=== PATIENT | male | born 1945 | race Caucasian/White ===

== ENCOUNTER 2019-07-19 08:37 | Observation (INO) | payer MEDICARE ==
[2019-07-18 10:48] VITALS: BMI 33.1
--- NOTE | 2019-07-19 09:34 | RAD ---
XR Chest Pa Lat STANDARD History: Preop evaluation Comparison: None. Findings: Lungs are clear. No pneumothorax or effusion. Cardiac silhouette and mediastinal contours a re within normal limits. Impression: No acute intrathoracic abnormality.
[2019-07-19 09:52] LABS: #Eosinphils 0.1 thou/uL (0.0-0.7); #Monocytes 0.4 thou/uL (0.11-0.59); #Neutrophils 2.7 thou/uL (1.40-6.50); %Basophils 0.1 % (0.0-1.0); %Eosinophils 1.2 % (0.0-10.0); %Lymphocytes 24.3 % (21.0-51.0); %Monocytes 8.7 % (0.0-10.0); %Neutrophils 65.7 % (42.0-75.0); Hemoglobin 12.1 g/dL (14.0-18.0); Mean Corpuscular HGB CONC 34.2 g/dL (32.0-36.0); Mean Corpuscular Hemoglobin 31.9 pg (27.0-31.0); Mean Corpuscular Volume 93.3 fL (78.0-98.0); Mean Platelet Volume 7.7 fL (7.4-10.4); Platelet Count 124 thou/uL (130-400); RBC Distribution Width 14.6 % (11.5-14.5); Red Blood Cell (RBC) Count 3.79 mill/uL (4.70-6.10); White Blood Cell (WBC) Count 4.2 thou/uL (4.8-10.8)
[2019-07-19] MEDS ORDERED: Ketorolac Tromethamine 30 MG/ML VIAL ONE (09:54)
[2019-07-19 10:11] LABS: Anion Gap 12 mmol/L (10-20); BUN (Urea Nitrogen) 26 mg/dL (8.4-25.7); Calc. Creatinine Clearance 56 mL/min (70-130); Calcium 9.4 mg/dL (7.8-10.44); Carbon Dioxide 20 mmol/L (23-31); Chloride 110 mmol/L (98-107); Estimated GFR-MDRD 43; Glucose 103 mg/dL (83-110); Potassium 4.5 mmol/L (3.5-5.1); Sodium 137 mmol/L (136-145)
[2019-07-19] MEDS ORDERED: Rocuronium Bromide 10 MG/ML (10ML VIAL) ONE (12:15)
[2019-07-19] MEDS ORDERED: PROPOFOL 200 MG/20 ML VIAL ONE (12:15)
[2019-07-19] MEDS ORDERED: PHENYLEPHRINE-NS 100 MCG/ML 10 ML SYRINGE ONE (12:15)
[2019-07-19] MEDS ORDERED: Ondansetron PF 4 MG/2 ML Vial ONE (12:15)
[2019-07-19] MEDS ORDERED: ePHEDrine 50 MG/ML VIAL ONE (12:15)
[2019-07-19] MEDS ORDERED: Lidocaine 1% PF 5 ML VIAL ONE (12:15)
[2019-07-19] MEDS ORDERED: Midazolam HCl 2 mg/2 ml Vial ONE (13:17)
[2019-07-19] MEDS ORDERED: Fentanyl 100 MCG/2 ML VIAL ONE (13:17)
[2019-07-19] MEDS ORDERED: Bupivacaine/Epinephrine 0.25% 30 ML VIAL ONE (14:56)
[2019-07-19] MEDS ORDERED: SUGAMMADEX SODIUM 500 MG/5 ML VIAL ONE (15:37)
[2019-07-19] MEDS ORDERED: Ondansetron HCl/PF 4 MG/2 ML Vial IVP PRN (16:15)
[2019-07-19] MEDS ORDERED: Promethazine HCl 25 MG/ML VIAL SLOW IVP PRN (16:15)
[2019-07-19] MEDS ORDERED: Promethazine HCl 25 MG/ML VIAL IM PRN (16:15)
[2019-07-19] MEDS ORDERED: Polyethylene Glycol 3350 17 GM Packet PO PRN (18:35)
[2019-07-19] MEDS ORDERED: Dextrose 5% in Water 1,000 ML IV PRN (18:35)
[2019-07-19] MEDS ORDERED: Insulin Regular 300 UNITS/3 ML VIAL SC PRN (18:35)
[2019-07-19] MEDS ORDERED: Morphine 2 MG/ML SYRINGE SLOW IVP PRN (18:35)
[2019-07-19] MEDS ORDERED: Dextrose 50% Abboject 50 ML SYRINGE SLOW IVP PRN (18:35)
[2019-07-19] MEDS ORDERED: Ondansetron PF 4 MG/2 ML Vial IVP PRN (18:35)
[2019-07-19] MEDS ORDERED: Morphine 4 MG/ML VIAL SLOW IVP PRN (18:35)
[2019-07-19] MEDS ORDERED: metFORMIN 850 MG TAB PO SCH (21:00)
[2019-07-19] MEDS ORDERED: Non-Formulary Item 1 EACH (Pioglitazone Hcl/Metformin Hcl [Actoplus Met] 1 TABLET) PO SCH (21:00)
[2019-07-19] MEDS ORDERED: Meloxicam 7.5 MG TAB PO SCH (21:00)
[2019-07-19] MEDS ORDERED: Atorvastatin Calcium 20 MG TAB PO SCH (21:00)
[2019-07-19] MEDS ORDERED: Pioglitazone HCl 15 MG TAB PO SCH (21:00)
[2019-07-19] MEDS ORDERED: Tamsulosin HCl 0.4 MG CAP PO SCH (21:00)
[2019-07-19] MEDS ORDERED: Lisinopril 10 MG TAB PO SCH (21:00)
[2019-07-19] MEDS: Famotidine/PF 20 mg/2ml Vial SLOW IVP SCH (21:17)
[2019-07-19] MEDS: Lactated Ringer's 1,000 ML IV SCH (21:17)
[2019-07-19] MEDS: traMADol HCl 50 MG TAB PO PRN (21:18)
[2019-07-20] MEDS: traMADol HCl 50 MG TAB PO PRN ×2 (05:30→13:09)
[2019-07-20 05:49] LABS: #Eosinphils 0.1 thou/uL (0.0-0.7); #Lymphocytes 0.9 thou/uL (1.20-3.40); #Monocytes 0.6 thou/uL (0.11-0.59); %Lymphocytes 15.8 % (21.0-51.0); %Monocytes 10.3 % (0.0-10.0); Hemoglobin 9.7 g/dL (14.0-18.0); Mean Corpuscular HGB CONC 33.7 g/dL (32.0-36.0); Mean Corpuscular Hemoglobin 31.8 pg (27.0-31.0); Mean Corpuscular Volume 94.2 fL (78.0-98.0); Mean Platelet Volume 7.5 fL (7.4-10.4); Platelet Count 92 thou/uL (130-400); RBC Distribution Width 14.4 % (11.5-14.5); Red Blood Cell (RBC) Count 3.06 mill/uL (4.70-6.10); White Blood Cell (WBC) Count 5.6 thou/uL (4.8-10.8)
[2019-07-20] MEDS: Lactated Ringer's 1,000 ML IV SCH (05:53)
[2019-07-20] MEDS ORDERED: Levothyroxine Sodium 100 MCG TAB PO SCH (06:00)
[2019-07-20 06:02] LABS: Anion Gap 11 mmol/L (10-20); BUN (Urea Nitrogen) 31 mg/dL (8.4-25.7); Calc. Creatinine Clearance 48 mL/min (70-130); Calcium 8.3 mg/dL (7.8-10.44); Carbon Dioxide 20 mmol/L (23-31); Chloride 110 mmol/L (98-107); Estimated GFR-MDRD 36; Glucose 94 mg/dL (83-110); Potassium 4.4 mmol/L (3.5-5.1); Sodium 137 mmol/L (136-145)
[2019-07-20] MEDS ORDERED: Lactated Ringer's 1,000 ML IV SCH ×2 (08:30→15:30)
[2019-07-20] MEDS: Famotidine/PF 20 mg/2ml Vial SLOW IVP SCH (09:47)
[2019-07-20 14:34] LABS: #Eosinphils 0.1 thou/uL (0.0-0.7); #Lymphocytes 1.1 thou/uL (1.20-3.40); #Monocytes 0.7 thou/uL (0.11-0.59); #Neutrophils 5.5 thou/uL (1.40-6.50); %Basophils 0.3 % (0.0-1.0); %Lymphocytes 14.6 % (21.0-51.0); %Monocytes 9.7 % (0.0-10.0); %Neutrophils 74.4 % (42.0-75.0); Hemoglobin 10.9 g/dL (14.0-18.0); Mean Corpuscular HGB CONC 33.7 g/dL (32.0-36.0); Mean Corpuscular Hemoglobin 31.8 pg (27.0-31.0); Mean Corpuscular Volume 94.3 fL (78.0-98.0); Mean Platelet Volume 7.8 fL (7.4-10.4); Platelet Count 124 thou/uL (130-400); RBC Distribution Width 14.7 % (11.5-14.5); Red Blood Cell (RBC) Count 3.43 mill/uL (4.70-6.10); White Blood Cell (WBC) Count 7.4 thou/uL (4.8-10.8)
[2019-07-20 14:50] LABS: Anion Gap 11 mmol/L (10-20); BUN (Urea Nitrogen) 30 mg/dL (8.4-25.7); Calc. Creatinine Clearance 45 mL/min (70-130); Calcium 8.6 mg/dL (7.8-10.44); Carbon Dioxide 21 mmol/L (23-31); Chloride 102 mmol/L (98-107); Estimated GFR-MDRD 33; Glucose 128 mg/dL (83-110); Potassium 4.2 mmol/L (3.5-5.1); Sodium 130 mmol/L (136-145)
[2019-07-20 16:17] VITALS: BP 129/68; TEMP 97.6
[2019-07-21] MEDS ORDERED: Polyethylene Glycol 3350 17 GM Packet PO SCH (09:00)
--- NOTE | 2019-07-23 06:31 | OP ---
DATE OF PROCEDURE: 07/19/2019 PREOPERATIVE DIAGNOSIS: Right inguinal hernia. POSTOPERATIVE DIAGNOSIS: Right inguinal hernia. OPERATION PERFORMED: Robotic right inguinal hernia repair. ANESTHESIA: General endotracheal. INDICATIONS: The patient is a 73-year-old white male. He has redundant skin and pannus secondary to recent weight loss. He has a large right inguinal hernia that he was unaware of because of the redundancy of the tissue in his lower abdomen and groin. He was taken to the operating room at this time for repair. DESCRIPTION OF OPERATION: Informed consent was obtained. The patient was taken to the operating room, where general endotracheal anesthesia was obtained with the patient in supine position. Abdomen was prepped with ChloraPrep and draped in sterile fashion. Local anesthetic was infiltrated using 0.25% Marcaine with epinephrine. An 11 mm supraumbilical incision was created, through which a Veress needle was passed into the peritoneal cavity and pneumoperitoneum was established using carbon dioxide up to pressure of 15 mmHg. An 11-mm balloon tipped port was placed uneventfully. Under direct vision, two additional 8-mm robotic ports were placed on either side of midline in the standard fashion. The robot was docked to the ports and the camera, and the operation was continued from the robotic console. , it was apparent that the balloon had pulled through the fascia on the camera port and the camera port had to be exchanged for a long port. The operation was then continued. The patient's anatomy was such that the instruments placed at the standard height were far too close to the groin, apparently because the umbilicus and periumbilical tissue was too low on his abdomen relative to his groin. This contributed to the difficulty of the operation. A transverse peritoneal incision was created, and dissection was carried distally in the preperitoneal space. I was able to identify the pubic tubercle medially and the iliopubic tract laterally. The patient had a large indirect inguinal hernia. I meticulously dissected this off the surrounding cord structures. I was able to invert the large hernia sac. A wide preperitoneal dissection was carried out inferiorly. A large 3DMax mesh patch was obtained and placed in the preperitoneal space. It was secured in place with 3 interrupted sutures of 2-0 Vicryl. Before placing the mesh, because of the large size of the defect, I partially closed the defect with 2 interrupted sutures of 2-0 Vicryl. The sutures placed were to the pubic tubercle and to the anterior abdominal wall lateral to the epigastric vessels. The peritoneum was closed with a running suture of 3-0 Stratafix. During the course of the operation, air had leached from within the peritoneum up into the subcutaneous fat and the patient developed extensive distention of the abdominal wall secondary to inspissated carbon dioxide. Secondary to this, I decided not to remove the Guillen catheter and to admit him for observation overnight. The ports were removed under direct vision. The fascial defect at the 11-mm port site was closed with 0 Vicryl suture using a GraNee needle. There was no evidence of bleeding from any port site. Pneumoperitoneum was carefully evacuated. 0.25% Marcaine with epinephrine was infiltrated into each port site. Skin edges were approximated with 4-0 Monocryl subcuticular suture. Dermabond was placed externally. There were no complications. The patient tolerated the procedure well and was taken to Recovery in stable condition. Job ID: [id number]
== END 2019-07-20 16:13 | disposition home or self-care (01) ==
LOC: SDC 08:37 → SJJU 18:05
PROVIDERS: ADMIT Specialist; ATTEND Specialist
PROC: 0YU54JZ Supplement Right Inguinal Region with Synthetic Substitute, Percutaneous Endoscopic Approach (ICD-10-PCS; principal; 2019-07-19)
DX: K40.90 Unilateral inguinal hernia, without obstruction or gangrene, not specified as recurrent (principal); L98.7 Excessive and redundant skin and subcutaneous tissue; I10 Essential (primary) hypertension; E11.9 Type 2 diabetes mellitus without complications; E03.9 Hypothyroidism, unspecified; E78.00 Pure hypercholesterolemia, unspecified; K21.9 Gastro-esophageal reflux disease without esophagitis; Z79.82 Long term (current) use of aspirin; Z79.899 Other long term (current) drug therapy; Z88.5 Allergy status to narcotic agent
CPT/HCPCS: 49650; 71046; 80048 ×3; 82962 ×2; 85025 ×3; 93005; 96361 ×2; 96374; 96375; 96376; C1781; G0378 ×2; 36415; 36416; 93010; J0131; J0690; J1885; J2001; J2250; J2405; J2704; J3010; J3490; S0028

== ENCOUNTER 2021-03-27 13:22 | Outpatient (CLI) | payer MEDICARE ==
[2021-03-27 14:35] LABS: #Eosinphils 0.1 10x3/uL (0.0-0.5); #Monocytes 0.5 10x3/uL (0.0-1.1); #Neutrophils 3.2 10x3/uL (1.5-8.4); %Basophils 0.7 % (0.0-2.0); %Eosinophils 2.2 % (0.0-6.0); %Lymphocytes 29.8 % (18.0-47.0); %Monocytes 9.5 % (0.0-10.0); %Neutrophils 57.6 % (40.0-75.0); Hemoglobin 12.5 g/dL (13.5-17.5); Mean Corpuscular HGB CONC 34.2 g/dL (32.0-36.0); Mean Corpuscular Hemoglobin 30.3 pg (27.0-33.0); Mean Corpuscular Volume 88.6 fl (81.2-95.1); Mean Platelet Volume 10.5 fl (7.4-10.4); Platelet Count 149 10x3/uL (150-450); RBC Distribution Width 17.2 % (11.5-14.5); Red Blood Cell (RBC) Count 4.13 10x6/uL (4.32-5.72); White Blood Cell (WBC) Count 5.5 10x3/uL (3.5-10.5)
[2021-03-27 14:47] LABS: Anion Gap 14 mmol/L (10-20); BUN (Urea Nitrogen) 37 mg/dL (8.4-25.7); Calc. Creatinine Clearance 0 mL/min (70-130); Calcium 9.1 mg/dL (7.8-10.44); Carbon Dioxide 22 mmol/L (23-31); Chloride 107 mmol/L (98-107); Glucose 112 mg/dL (83-110); Potassium 5.2 mmol/L (3.5-5.1); Sodium 138 mmol/L (136-145)
[2021-03-28 01:00] LABS: SARS-CoV-2 PCR by NAA Not Detected (NotDetected)
== END 2021-03-27 13:23 | disposition home or self-care (01) ==
LOC: LABBT 13:22
PROVIDERS: ATTEND Internal Medicine Cardiovascular Disease
DX: Z01.812 Encounter for preprocedural laboratory examination (principal); I48.19 Other persistent atrial fibrillation; Z20.822 Contact with and (suspected) exposure to COVID-19
CPT/HCPCS: 80048; 85025; U0003; U0005; 87635

== ENCOUNTER 2021-03-31 06:49 | Day surgery (SDC) | payer MEDICARE ==
[2021-03-27 12:20] VITALS: BMI 32.1
[2021-03-31] MEDS ORDERED: PROPOFOL 20 ML ONE (11:34)
[2021-03-31] MEDS ORDERED: Lidocaine 1% PF 5 ML VIAL ONE (11:34)
== END 2021-03-31 13:07 | disposition home or self-care (01) ==
LOC: CCL 06:49
PROVIDERS: ATTEND Internal Medicine Cardiovascular Disease
PROC: 5A2204Z Restoration of Cardiac Rhythm, Single (ICD-10-PCS; principal; 2021-03-31)
PROC: B246ZZ4 Ultrasonography of Right and Left Heart, Transesophageal (ICD-10-PCS; 2021-03-31)
DX: I48.19 Other persistent atrial fibrillation (principal); I08.1 Rheumatic disorders of both mitral and tricuspid valves; I10 Essential (primary) hypertension; I45.10 Unspecified right bundle-branch block; E78.00 Pure hypercholesterolemia, unspecified; K21.9 Gastro-esophageal reflux disease without esophagitis; E03.9 Hypothyroidism, unspecified; E11.9 Type 2 diabetes mellitus without complications; Z79.01 Long term (current) use of anticoagulants; Z79.82 Long term (current) use of aspirin; Z79.84 Long term (current) use of oral hypoglycemic drugs; Z79.899 Other long term (current) drug therapy; Z88.5 Allergy status to narcotic agent
CPT/HCPCS: 92960; 93005; 93010; 93312; J2704

== ENCOUNTER 2021-06-05 11:10 | Outpatient (CLI) | payer MEDICARE ==
[2021-06-05 13:05] LABS: Hemoglobin 11.9 g/dL (13.5-17.5); Mean Corpuscular HGB CONC 33.9 g/dL (32.0-36.0); Mean Corpuscular Hemoglobin 30.1 pg (27.0-33.0); Mean Corpuscular Volume 88.9 fl (81.2-95.1); Mean Platelet Volume 10.1 fl (7.4-10.4); Platelet Count 125 10x3/uL (150-450); RBC Distribution Width 17.7 % (11.5-14.5); Red Blood Cell (RBC) Count 3.95 10x6/uL (4.32-5.72); White Blood Cell (WBC) Count 4.4 10x3/uL (3.5-10.5)
[2021-06-05 13:17] LABS: INR-International Normal Ratio 1.1; PTT 27.9 sec (22.0-33.0); Prothrombin Time 12.6 sec (9.5-12.1)
[2021-06-05 13:39] LABS: Anion Gap 14 mmol/L (10-20); BUN (Urea Nitrogen) 36 mg/dL (8.4-25.7); Calc. Creatinine Clearance 0 mL/min (70-130); Calcium 9.5 mg/dL (7.8-10.44); Carbon Dioxide 22 mmol/L (23-31); Chloride 107 mmol/L (98-107); Glucose 111 mg/dL (83-110); Potassium 4.9 mmol/L (3.5-5.1); Sodium 138 mmol/L (136-145)
[2021-06-06 15:22] LABS: SARS-CoV-2 PCR by NAA Not Detected (NotDetected)
== END 2021-06-05 11:11 | disposition home or self-care (01) ==
LOC: LABBT 11:10
PROVIDERS: ATTEND Internal Medicine Cardiovascular Disease
DX: Z01.812 Encounter for preprocedural laboratory examination (principal); Z51.81 Encounter for therapeutic drug level monitoring; I48.91 Unspecified atrial fibrillation; I51.9 Heart disease, unspecified; Z79.01 Long term (current) use of anticoagulants; Z20.822 Contact with and (suspected) exposure to COVID-19
CPT/HCPCS: 80048; 85027; 85610; 85730; U0003; U0005

== ENCOUNTER 2021-06-10 05:57 | Day surgery (SDC) | payer MEDICARE ==
[2021-06-09 10:55] VITALS: BMI 32.0
[2021-06-10] MEDS ORDERED: Heparin 25,000 units/D5W 0 ML ONE (06:47)
[2021-06-10] MEDS ORDERED: Isoproterenol 0.2 MG/1 ML AMP ONE (06:47)
[2021-06-10] MEDS ORDERED: Heparin 10,000 UNITS/ 10 ML VIAL ONE ×2 (06:47→10:36)
[2021-06-10] MEDS ORDERED: Fentanyl 100 MCG/2 ML VIAL ONE ×3 (09:12→10:54)
[2021-06-10] MEDS ORDERED: Ondansetron PF 4 MG/2 ML Vial ONE (09:30)
[2021-06-10] MEDS ORDERED: PHENYLEPHRINE-NS 100 MCG/ML 10 ML SYRINGE ONE (09:30)
[2021-06-10] MEDS ORDERED: Rocuronium Bromide 10 MG/ML (10ML VIAL) ONE (09:30)
[2021-06-10] MEDS ORDERED: PROPOFOL 200 MG/20 ML VIAL ONE (09:30)
[2021-06-10] MEDS ORDERED: Lidocaine 1% PF 5 ML VIAL ONE (09:30)
[2021-06-10] MEDS ORDERED: Glycopyrrolate 0.2 MG/ML 5 ML SYRINGE ONE (09:30)
[2021-06-10] MEDS ORDERED: ePHEDrine 50 MG/ML VIAL ONE (09:30)
[2021-06-10] MEDS ORDERED: Protamine Sulfate 50 MG/5 ML VIAL ONE ×2 (11:55→12:21)
== END 2021-06-10 15:37 | disposition home or self-care (01) ==
LOC: CCL 05:57
PROVIDERS: ATTEND Internal Medicine Cardiovascular Disease
PROC: 02583ZZ Destruction of Conduction Mechanism, Percutaneous Approach (ICD-10-PCS; principal; 2021-06-10)
PROC: 02K83ZZ Map Conduction Mechanism, Percutaneous Approach (ICD-10-PCS; 2021-06-10)
PROC: 4A023FZ Measurement of Cardiac Rhythm, Percutaneous Approach (ICD-10-PCS; 2021-06-10)
PROC: 4A0234Z Measurement of Cardiac Electrical Activity, Percutaneous Approach (ICD-10-PCS; 2021-06-10)
DX: I48.19 Other persistent atrial fibrillation (principal); I48.4 Atypical atrial flutter; E78.5 Hyperlipidemia, unspecified; I10 Essential (primary) hypertension; E11.9 Type 2 diabetes mellitus without complications; E03.9 Hypothyroidism, unspecified; M17.12 Unilateral primary osteoarthritis, left knee; I49.5 Sick sinus syndrome; I45.10 Unspecified right bundle-branch block; I08.1 Rheumatic disorders of both mitral and tricuspid valves; E78.00 Pure hypercholesterolemia, unspecified; K21.9 Gastro-esophageal reflux disease without esophagitis; Z79.01 Long term (current) use of anticoagulants; Z79.84 Long term (current) use of oral hypoglycemic drugs; Z79.899 Other long term (current) drug therapy; Z88.5 Allergy status to narcotic agent
CPT/HCPCS: 76942; 85347; 93005; 93010; 93613; 93623; 93655; 93656; 93662; C1732; C1759; C1884; J1644; J2405; J2704; J2720; J3010; J3490

== ENCOUNTER 2022-04-16 15:28 | Inpatient (IN) | payer MEDICARE ==
[~2022-04-16 15:28] MED LIST: Heparin 1,000 UNITS/ML VIAL ONE
[2022-04-16] MEDS ORDERED: Ondansetron ODT 4 MG TAB PO PRN (15:58)
[2022-04-16] MEDS ORDERED: Ondansetron PF 4 MG/2 ML Vial IVP PRN (15:58)
[2022-04-16 18:03] VITALS: BMI 29.3
[2022-04-16] MEDS ORDERED: Vancomycin 1.5 GRAM/300 ML BAG 1.5 GM in Premix Bag 1 BAG IVPB SCH (18:15)
[2022-04-16 18:36] LABS: #Eosinphils 0.2 thou/uL (0.0-0.7); #Lymphocytes 1.6 thou/uL (1.20-3.40); #Monocytes 1.1 thou/uL (0.11-0.59); #Neutrophils 5.6 thou/uL (1.40-6.50); %Basophils 0.2 % (0.0-1.0); %Eosinophils 2.5 % (0.0-10.0); %Lymphocytes 18.5 % (21.0-51.0); %Monocytes 12.7 % (0.0-10.0); %Neutrophils 66.2 % (42.0-75.0); Hemoglobin 10.7 g/dL (14.0-18.0); Mean Corpuscular HGB CONC 31.7 g/dL (32.0-36.0); Mean Corpuscular Hemoglobin 28.9 pg (27.0-31.0); Mean Corpuscular Volume 91.1 fL (78.0-98.0); Mean Platelet Volume 7.5 fL (7.4-10.4); Platelet Count 243 thou/uL (130-400); RBC Distribution Width 17.4 % (11.5-14.5); Red Blood Cell (RBC) Count 3.72 mill/uL (4.70-6.10); White Blood Cell (WBC) Count 8.4 thou/uL (4.8-10.8)
[2022-04-16] MEDS ORDERED: Polyethylene Glycol 3350 17 GM Packet PO PRN (18:51)
[2022-04-16] MEDS ORDERED: Senokot 8.6 MG TAB PO PRN (18:51)
[2022-04-16 18:53] LABS: ALT (SGPT) 13 U/L (8-55); AST (SGOT) 34 U/L (5-34); Alkaline Phosphatase 115 U/L (40-110); Anion Gap 17 mmol/L (10-20); BUN (Urea Nitrogen) 30 mg/dL (8.4-25.7); Bilirubin, Total 2.2 mg/dL (0.2-1.2); Calc. Creatinine Clearance 36 mL/min (70-130); Calcium 8.8 mg/dL (7.8-10.44); Carbon Dioxide 23 mmol/L (23-31); Chloride 95 mmol/L (98-107); Globulin 4.9 g/dL (2.4-3.5); Glucose 136 mg/dL (83-110); Potassium 4.4 mmol/L (3.5-5.1); Protein, Total 7.9 g/dL (5.8-8.1); Sodium 131 mmol/L (136-145)
[2022-04-16] MEDS ORDERED: Dextrose 5% in Water 1,000 ML IV PRN (19:07)
[2022-04-16] MEDS ORDERED: HumaLOG 300 UNITS/3 ML VIAL SC PRN (19:07)
[2022-04-16] MEDS ORDERED: Dextrose 50% Abboject 50 ML SYRINGE SLOW IVP PRN (19:07)
[2022-04-16] MEDS ORDERED: Lactated Ringer's 1,000 ML IV SCH (19:45)
[2022-04-16] MEDS: Midodrine HCl 5 MG TAB PO SCH (20:48)
[2022-04-16] MEDS: Sodium Bicarbonate Tab 325 MG TAB PO SCH (20:48)
[2022-04-16] MEDS: Apixaban 2.5 MG TAB PO SCH (20:48)
[2022-04-16] MEDS: Amiodarone 200 MG TAB PO SCH (20:48)
[2022-04-17] MEDS: Levothyroxine Sodium 125 MCG TAB PO SCH (05:05)
[2022-04-17] MEDS: Floranex 1 GM Packet PO SCH (09:02)
[2022-04-17] MEDS: Sodium Bicarbonate Tab 325 MG TAB PO SCH ×2 (09:02→20:35)
[2022-04-17] MEDS: Amiodarone 200 MG TAB PO SCH ×2 (09:03→20:36)
[2022-04-17] MEDS: Apixaban 2.5 MG TAB PO SCH ×2 (09:03→20:39)
[2022-04-17] MEDS: Midodrine HCl 5 MG TAB PO SCH ×3 (09:03→20:35)
[2022-04-17 10:07] LABS: Anion Gap 14 mmol/L (10-20); BUN (Urea Nitrogen) 28 mg/dL (8.4-25.7); Calc. Creatinine Clearance 37 mL/min (70-130); Calcium 8.7 mg/dL (7.8-10.44); Carbon Dioxide 25 mmol/L (23-31); Chloride 97 mmol/L (98-107); Glucose 111 mg/dL (83-110); Potassium 4.6 mmol/L (3.5-5.1); Sodium 131 mmol/L (136-145)
[2022-04-17] MEDS: Lactated Ringer's 1,000 ML IV SCH ×2 (12:56→20:39)
[2022-04-17] MEDS ORDERED: VANCOMYCIN 1.25 GM/250 ML BAG 1.25 GM in Premix Bag 1 BAG IVPB SCH (18:00)
[2022-04-18] MEDS: Lactated Ringer's 1,000 ML IV SCH ×2 (03:10→10:43)
[2022-04-18] MEDS: Levothyroxine Sodium 125 MCG TAB PO SCH (05:12)
[2022-04-18 06:29] LABS: Hemoglobin 9.3 g/dL (14.0-18.0); Mean Corpuscular HGB CONC 32.3 g/dL (32.0-36.0); Mean Corpuscular Hemoglobin 29.6 pg (27.0-31.0); Mean Corpuscular Volume 91.6 fL (78.0-98.0); Mean Platelet Volume 7.2 fL (7.4-10.4); Platelet Count 147 thou/uL (130-400); RBC Distribution Width 17.6 % (11.5-14.5); Red Blood Cell (RBC) Count 3.13 mill/uL (4.70-6.10)
[2022-04-18 06:54] LABS: Anion Gap 11 mmol/L (10-20); BUN (Urea Nitrogen) 29 mg/dL (8.4-25.7); Calc. Creatinine Clearance 39 mL/min (70-130); Calcium 8.6 mg/dL (7.8-10.44); Carbon Dioxide 25 mmol/L (23-31); Chloride 97 mmol/L (98-107); Glucose 88 mg/dL (83-110); Potassium 4.3 mmol/L (3.5-5.1); Sodium 129 mmol/L (136-145)
[2022-04-18 06:59] LABS: Eosinophils 3 % (0-10); Lymphocytes 15 % (21-51); MDiff Complete? YES; Monocytes 16 % (0-10); Neutrophil 64 % (42-75)
[2022-04-18] MEDS: Sodium Bicarbonate Tab 325 MG TAB PO SCH ×2 (08:35→20:48)
[2022-04-18] MEDS: Midodrine HCl 5 MG TAB PO SCH ×3 (08:35→20:48)
[2022-04-18] MEDS: Apixaban 2.5 MG TAB PO SCH ×2 (08:35→21:26)
[2022-04-18] MEDS: Amiodarone 200 MG TAB PO SCH ×2 (08:36→20:48)
[2022-04-18] MEDS: Floranex 1 GM Packet PO SCH (08:36)
[2022-04-18] MEDS ORDERED: Sodium Chloride 0.9% 1,000 ML IV SCH (10:30)
[2022-04-18 12:21] LABS: Bacteria/HPF None Seen HPF (None Seen); Bilirubin Negative (Negative); Blood, Urine 3+ (Negative); Clarity Turbid (Clear); Glucose, Urine (Dipstick) Normal (Negative); Ketone, Urine Negative (Negative); Leukocyte 25 Leu/uL (Negative); Nitrite Negative (Negative); Protein, Urine (Dipstick) 50 mg/dL (Neg-Trace); RBC/HPF Greater than 50 HPF (0-3); Specific Gravity, Urine 1.012 (1.002-1.036); Squamous Epithelial 0-3 HPF (0-3); Urobilinogen 3 mg/dL (Less than 2)
[2022-04-18 12:22] LABS: Urine Culture Reflex Yes Yes
[2022-04-18 12:38] LABS: Protein, Urine Random Quant 69 mg/dL (1-14); Sodium, Urine 63 mmol/L (Not Available); Urea Nitrogen, Random Urine 463 mg/dl
[2022-04-18 17:17] LABS: Vancomycin, Trough 18.5 ug/mL
[2022-04-18] MEDS ORDERED: Vancomycin 1 GM in Premix Bag 1 BAG IVPB SCH (18:00)
[2022-04-19] MEDS: Levothyroxine Sodium 125 MCG TAB PO SCH (05:09)
[2022-04-19 06:33] LABS: Hemoglobin 9.2 g/dL (14.0-18.0); Mean Corpuscular HGB CONC 32.3 g/dL (32.0-36.0); Mean Corpuscular Hemoglobin 29.7 pg (27.0-31.0); Mean Corpuscular Volume 91.9 fL (78.0-98.0); Mean Platelet Volume 7.3 fL (7.4-10.4); Platelet Count 155 thou/uL (130-400); RBC Distribution Width 17.7 % (11.5-14.5); Red Blood Cell (RBC) Count 3.11 mill/uL (4.70-6.10); White Blood Cell (WBC) Count 4.9 thou/uL (4.8-10.8)
[2022-04-19 06:47] LABS: Anion Gap 12 mmol/L (10-20); BUN (Urea Nitrogen) 25 mg/dL (8.4-25.7); Calc. Creatinine Clearance 43 mL/min (70-130); Calcium 8.3 mg/dL (7.8-10.44); Carbon Dioxide 23 mmol/L (23-31); Chloride 97 mmol/L (98-107); Glucose 88 mg/dL (83-110); Potassium 4.4 mmol/L (3.5-5.1); Sodium 128 mmol/L (136-145)
[2022-04-19 07:20] LABS: Anisocytosis SLIGHT = 6-15 cells (100X) (0-5/hpf); Band 5 % (5-11); Eosinophils 2 % (0-10); Hypochromia SLIGHT = 6-15 cells (100X) (0-5/hpf); Lymphocytes 12 % (21-51); MDiff Complete? YES; Monocytes 18 % (0-10); Neutrophil 61 % (42-75); Platelet Morphology Comment Appears Adequate; Polychromasia SLIGHT = 2-3 cells (100X) (0-2/hpf)
[2022-04-19] MEDS: Amiodarone 200 MG TAB PO SCH ×2 (08:23→21:34)
[2022-04-19] MEDS: Midodrine HCl 5 MG TAB PO SCH ×3 (08:23→21:33)
[2022-04-19] MEDS: Floranex 1 GM Packet PO SCH (08:23)
[2022-04-19] MEDS: Sodium Bicarbonate Tab 325 MG TAB PO SCH ×2 (08:23→21:34)
[2022-04-19] MEDS: Apixaban 2.5 MG TAB PO SCH ×2 (08:24→21:38)
[2022-04-19] MEDS: DAPTOmycin 700 MG in Sodium Chloride 0.9% 100 ML IVPB SCH (18:24)
[2022-04-20] MEDS: Levothyroxine Sodium 125 MCG TAB PO SCH (05:28)
[2022-04-20 06:33] LABS: Hemoglobin 8.9 g/dL (14.0-18.0); Mean Corpuscular HGB CONC 30.8 g/dL (32.0-36.0); Mean Corpuscular Hemoglobin 28.2 pg (27.0-31.0); Mean Corpuscular Volume 91.4 fL (78.0-98.0); Mean Platelet Volume 7.3 fL (7.4-10.4); Platelet Count 135 thou/uL (130-400); RBC Distribution Width 18.2 % (11.5-14.5); Red Blood Cell (RBC) Count 3.17 mill/uL (4.70-6.10); White Blood Cell (WBC) Count 4.2 thou/uL (4.8-10.8)
[2022-04-20 06:36] LABS: Anion Gap 12 mmol/L (10-20); BUN (Urea Nitrogen) 25 mg/dL (8.4-25.7); Calc. Creatinine Clearance 44 mL/min (70-130); Calcium 8.3 mg/dL (7.8-10.44); Carbon Dioxide 22 mmol/L (23-31); Chloride 97 mmol/L (98-107); Glucose 81 mg/dL (83-110); Potassium 4.1 mmol/L (3.5-5.1); Sodium 127 mmol/L (136-145)
[2022-04-20 06:40] LABS: Band 1 % (5-11); Eosinophils 5 % (0-10); Lymphocytes 19 % (21-51); MDiff Complete? YES; Monocytes 15 % (0-10); Neutrophil 58 % (42-75)
[2022-04-20] MEDS: Amiodarone 200 MG TAB PO SCH ×2 (09:15→20:50)
[2022-04-20] MEDS: Midodrine HCl 5 MG TAB PO SCH ×3 (09:15→20:50)
[2022-04-20] MEDS: Apixaban 2.5 MG TAB PO SCH ×2 (09:15→20:51)
[2022-04-20] MEDS: Sulfameth/Trimethoprim DS 800-160mg TAB PO SCH (09:15)
[2022-04-20] MEDS: Sodium Bicarbonate Tab 325 MG TAB PO SCH ×2 (09:15→20:51)
[2022-04-20] MEDS: Floranex 1 GM Packet PO SCH (09:15)
[2022-04-20] MEDS: DAPTOmycin 700 MG in Sodium Chloride 0.9% 100 ML IVPB SCH (17:32)
[2022-04-21] MEDS: Levothyroxine Sodium 125 MCG TAB PO SCH (05:38)
[2022-04-21 07:24] LABS: Anisocytosis SLIGHT = 6-15 cells (100X) (0-5/hpf); Band 12 % (5-11); Eosinophils 4 % (0-10); Hemoglobin 9.1 g/dL (14.0-18.0); Lymphocytes 17 % (21-51); MDiff Complete? YES; Mean Corpuscular HGB CONC 31.5 g/dL (32.0-36.0); Mean Corpuscular Volume 92.1 fL (78.0-98.0); Mean Platelet Volume 7.9 fL (7.4-10.4); Monocytes 11 % (0-10); Neutrophil 55 % (42-75); Platelet Count 133 thou/uL (130-400); Platelet Morphology Comment Appears Adequate; Polychromasia SLIGHT = 2-3 cells (100X) (0-2/hpf); RBC Distribution Width 18.3 % (11.5-14.5); Red Blood Cell (RBC) Count 3.12 mill/uL (4.70-6.10); White Blood Cell (WBC) Count 4.7 thou/uL (4.8-10.8)
[2022-04-21 07:25] LABS: Anion Gap 11 mmol/L (10-20); BUN (Urea Nitrogen) 23 mg/dL (8.4-25.7); Calc. Creatinine Clearance 44 mL/min (70-130); Carbon Dioxide 24 mmol/L (23-31); Chloride 95 mmol/L (98-107); Glucose 83 mg/dL (83-110); Potassium 4.4 mmol/L (3.5-5.1); Sodium 126 mmol/L (136-145)
[2022-04-21] MEDS: Amiodarone 200 MG TAB PO SCH ×2 (08:58→20:52)
[2022-04-21] MEDS: Apixaban 2.5 MG TAB PO SCH ×2 (08:58→20:52)
[2022-04-21] MEDS: Sodium Bicarbonate Tab 325 MG TAB PO SCH ×2 (08:58→20:52)
[2022-04-21] MEDS: Floranex 1 GM Packet PO SCH (08:58)
[2022-04-21] MEDS: Sulfameth/Trimethoprim DS 800-160mg TAB PO SCH (08:58)
[2022-04-21] MEDS: Midodrine HCl 5 MG TAB PO SCH ×3 (08:58→20:52)
[2022-04-21] MEDS ORDERED: VANCOMYCIN 1.25 GM/250 ML BAG 1.25 GM in Premix Bag 1 BAG IVPB SCH (12:00)
[2022-04-21] MEDS: Acetaminophen 325 MG TAB PO PRN ×2 (17:30→20:53)
[2022-04-22] MEDS: Levothyroxine Sodium 125 MCG TAB PO SCH (05:01)
[2022-04-22] MEDS: Acetaminophen 325 MG TAB PO PRN (05:04)
[2022-04-22 05:40] LABS: Anion Gap 12 mmol/L (10-20); BUN (Urea Nitrogen) 20 mg/dL (8.4-25.7); Calc. Creatinine Clearance 45 mL/min (70-130); Calcium 7.8 mg/dL (7.8-10.44); Carbon Dioxide 23 mmol/L (23-31); Chloride 96 mmol/L (98-107); Glucose 78 mg/dL (83-110); Potassium 4.4 mmol/L (3.5-5.1); Sodium 127 mmol/L (136-145)
[2022-04-22 05:41] LABS: Band 2 % (5-11); Eosinophils 2 % (0-10); Hemoglobin 8.8 g/dL (14.0-18.0); Lymphocytes 18 % (21-51); MDiff Complete? YES; Mean Corpuscular HGB CONC 32.6 g/dL (32.0-36.0); Mean Corpuscular Hemoglobin 29.5 pg (27.0-31.0); Mean Corpuscular Volume 90.7 fL (78.0-98.0); Mean Platelet Volume 7.6 fL (7.4-10.4); Monocytes 18 % (0-10); Neutrophil 59 % (42-75); Platelet Count 131 thou/uL (130-400); RBC Distribution Width 18.1 % (11.5-14.5); Red Blood Cell (RBC) Count 2.96 mill/uL (4.70-6.10); White Blood Cell (WBC) Count 4.2 thou/uL (4.8-10.8)
[2022-04-22 08:15] VITALS: TEMP 97.4
[2022-04-22] MEDS: Sodium Bicarbonate Tab 325 MG TAB PO SCH (08:25)
[2022-04-22] MEDS: Amiodarone 200 MG TAB PO SCH (08:25)
[2022-04-22] MEDS: Midodrine HCl 5 MG TAB PO SCH ×2 (08:25→14:01)
[2022-04-22] MEDS: Apixaban 2.5 MG TAB PO SCH (08:25)
[2022-04-22] MEDS: Floranex 1 GM Packet PO SCH (08:26)
[2022-04-22] MEDS: Sulfameth/Trimethoprim DS 800-160mg TAB PO SCH (08:26)
[2022-04-22] MEDS ORDERED: Vancomycin 1 GM in Premix Bag 1 BAG IVPB SCH (12:00)
[2022-04-22 15:41] VITALS: BP 120/74
== END 2022-04-22 15:32 | disposition home health service (06) | DRG 560 ==
LOC: T4-B 17:06
PROVIDERS: ADMIT Student in an Organized Health Care Education/Training Program; ATTEND Student in an Organized Health Care Education/Training Program
PROC: 02HV33Z Insertion of Infusion Device into Superior Vena Cava, Percutaneous Approach (ICD-10-PCS; principal; 2022-04-19)
PROC: B548ZZA Ultrasonography of Superior Vena Cava, Guidance (ICD-10-PCS; 2022-04-19)
DX: T84.54XA Infection and inflammatory reaction due to internal left knee prosthesis, initial encounter (principal); M00.062 Staphylococcal arthritis, left knee; R78.81 Bacteremia; N17.9 Acute kidney failure, unspecified; E87.1 Hypo-osmolality and hyponatremia; Y83.8 Other surgical procedures as the cause of abnormal reaction of the patient, or of later complication, without mention of misadventure at the time of the procedure; B95.62 Methicillin resistant Staphylococcus aureus infection as the cause of diseases classified elsewhere; I48.91 Unspecified atrial fibrillation; E11.22 Type 2 diabetes mellitus with diabetic chronic kidney disease; E03.9 Hypothyroidism, unspecified; N18.30 Chronic kidney disease, stage 3 unspecified; Z88.5 Allergy status to narcotic agent; Z88.8 Allergy status to other drugs, medicaments and biological substances; Z79.890 Hormone replacement therapy; Z79.899 Other long term (current) drug therapy; Z79.01 Long term (current) use of anticoagulants
CPT/HCPCS: 36415; 36416; 36569; 80048; 80053; 80202; 81001; 82550; 82570; 83930; 83935; 84145; 84156; 84300; 84540; 85025; 85652; 86140; 87040; 87086; C1751; J0878; J1644; J2405; J3370; J3490; J7050; J7120; U0003; U0005

== ENCOUNTER 2024-08-09 12:31 | Day surgery (SDC) | payer MEDICARE ==
[2024-08-08 10:26] VITALS: BMI 24.9
[2024-08-09] MEDS ORDERED: PROPOFOL 0 ML ONE (13:35)
[2024-08-09] MEDS ORDERED: Lidocaine 1% PF 5 ML VIAL ONE (13:35)
[2024-08-09] MEDS ORDERED: PROPOFOL 20 ML ONE (14:00)
== END 2024-08-09 14:45 | disposition home or self-care (01) ==
LOC: SDC 12:31
PROVIDERS: ATTEND Internal Medicine Gastroenterology
PROC: 0DB58ZX Excision of Esophagus, Via Natural or Artificial Opening Endoscopic, Diagnostic (ICD-10-PCS; principal; 2024-08-09)
PROC: 0DB68ZX Excision of Stomach, Via Natural or Artificial Opening Endoscopic, Diagnostic (ICD-10-PCS; 2024-08-09)
DX: R63.0 Anorexia (principal); K29.50 Unspecified chronic gastritis without bleeding; K21.00 Gastro-esophageal reflux disease with esophagitis, without bleeding; I48.91 Unspecified atrial fibrillation; R63.4 Abnormal weight loss; K44.9 Diaphragmatic hernia without obstruction or gangrene; I13.0 Hypertensive heart and chronic kidney disease with heart failure and stage 1 through stage 4 chronic kidney disease, or unspecified chronic kidney disease; N18.9 Chronic kidney disease, unspecified; I50.9 Heart failure, unspecified; E11.22 Type 2 diabetes mellitus with diabetic chronic kidney disease; E78.00 Pure hypercholesterolemia, unspecified; T82.7XXA Infection and inflammatory reaction due to other cardiac and vascular devices, implants and grafts, initial encounter; T84.54XA Infection and inflammatory reaction due to internal left knee prosthesis, initial encounter; Z98.49 Cataract extraction status, unspecified eye; Z95.0 Presence of cardiac pacemaker; Z79.01 Long term (current) use of anticoagulants; Z79.890 Hormone replacement therapy; Z79.899 Other long term (current) drug therapy
CPT/HCPCS: 43239; J2704; 88305

== ENCOUNTER 2024-08-21 14:15 | Emergency (ER) | payer MEDICARE ==
[~2024-08-21 14:15] MED LIST changes: -Heparin 1,000 UNITS/ML VIAL ONE; +Iopamidol-370 76% 500 ML MDV (1 ML CHARGE) ONE
[2024-08-21 14:51] LABS: #Basophils 0.04 10x3/uL (0.0-0.2); %Basophils 0.6 % (0.0-1.0); %Eosinophils 1.9 % (0.0-10.0); %Lymphocytes 24.5 % (21.0-51.0); %Monocytes 9.4 % (0.0-10.0); %Neutrophils 63.3 % (42.0-75.0); Hematocrit 32.1 % (42.0-52.0); Hemoglobin 10.3 g/dL (14.0-18.0); Mean Corpuscular HGB CONC 32.1 g/dL (32.0-36.0); Mean Corpuscular Hemoglobin 25.9 pg (27.0-31.0); Mean Corpuscular Volume 80.7 fL (78.0-98.0); Mean Platelet Volume 8.5 fL (7.4-10.4); Platelet Count 302 10x3/uL (130-400); RBC Distribution Width 17.8 % (11.5-14.5); Red Blood Cell (RBC) Count 3.98 mill/uL (4.70-6.10)
[2024-08-21 15:10] LABS: INR-International Normal Ratio 1.6; PTT 47.1 sec (22.9-36.1); Prothrombin Time 18.9 sec (12.0-14.7); Troponin I Less than 0.010 ng/mL (< 0.028)
[2024-08-21 15:12] LABS: ALT (SGPT) 15 U/L (8-55); AST (SGOT) 22 U/L (5-34); Albumin 2.4 g/dL (3.4-4.8); Alkaline Phosphatase 68 U/L (40-110); Anion Gap 16 mmol/L (10-20); BUN (Urea Nitrogen) 21 mg/dL (8.4-25.7); Bilirubin, Total 0.5 mg/dL (0.2-1.2); Calc. Creatinine Clearance 0 mL/min (70-130); Calcium 8.9 mg/dL (7.8-10.44); Carbon Dioxide 17 mmol/L (23-31); Chloride 104 mmol/L (98-107); Estimated GFR 52; Globulin 6.2 g/dL (2.4-3.5); Glucose 171 mg/dL (83-110); Potassium 4.2 mmol/L (3.5-5.1); Protein, Total 8.6 g/dL (5.8-8.1); Sodium 133 mmol/L (136-145)
[2024-08-21] MEDS ORDERED: dilTIAZem 125 MG/25 ML SDV ONE (19:29)
== END 2024-08-21 21:04 | disposition home or self-care (01) ==
LOC: ERS 14:15
DX: R06.00 Dyspnea, unspecified (principal); R63.0 Anorexia; I10 Essential (primary) hypertension
CPT/HCPCS: 36415; 71045; 71260; 74177; 80053; 83880; 84484; 85025; 85610; 85730; 93005; 96374; Q9967